=== PATIENT | male | born 1990 | race Caucasian/White ===

== ENCOUNTER → 2018-05-05 12:40 | Outpatient (CLI) | payer OTHER, SELFPAY ==
--- NOTE | 2018-05-05 | DI.MRI.S_ITS ---
PROCEDURE: MR ANKLE RT WO CON INDICATIONS: PAIN IN BOTH FEET AND ANKLES, DIFFICULTY WALKING TECHNIQUE: Noncontrast sagittal T1 spin echo and T2 fast spin echo with fat saturation, axial proton density fast spin echo and T2 fast spin echo with fat saturation, coronal T1 spin echo and T2 fast spin echo with fat saturation through the ankle/hindfoot. COMPARISON: [facility], MR, MR ANKLE LT WO CON, 05/05/2018, 12:56. FINDINGS: Image quality: Diagnostic. Bones and joints: No bone marrow contusions or fractures. No hindfoot coalitions. No osteochondral injuries of the talar dome. No pathologic joint effusions. Medial structures: The deltoid ligament is intact. Thickening and increased signal is evident involving the supramedial band of the spring ligament. The plantar components of the spring ligament are thickened, but appear intact. The tibialis posterior flexor digitorum longus, and flexor hallucis longus tendons appear intact. The posterior tibial neurovascular bundle appears to be within normal limits through the region of the tarsal tunnel. Lateral structures: The there is thickening and heterogeneity identified involving antrum posterior distal tibiofibular ligaments. The anterior and posterior talofibular ligaments are intact. The calcaneofibular ligament is intact. No complete tears are evident. The peroneus brevis and peroneus longus tendons are intact. There is flattening and increased signal identified involving the peroneus brevis tendon. There is also mild increased signal identified involving the peroneus longus tendon. No significant edema is identified within the sinus tarsi. Anterior structures: The tibialis anterior, extensor hallucis longus, and extensor digitorum longus tendons appear intact. The dorsal talonavicular ligament appears intact. Posterior and plantar structures: There is nonspecific prominence of the Achilles tendon with mild edema noted in the prostatic bed. The plantar fascia is within normal limits. IMPRESSION: 1. Possible mild Achilles tendinopathy without significant change. 2. Mild peroneus brevis and peroneus longus tendinopathy. 3. Probable scarring of the syndesmotic ligaments without a full-thickness tear evident. 4. Probable scarring of the spring ligament. No complete tear. Dictated by: Camden Larson M.D. on 05/05/2018 at 13:31 Approved by: Camden Larson M.D. on 05/05/2018 at 15:01
--- NOTE | 2018-05-05 | DI.MRI.S_ITS ---
PROCEDURE: MR ANKLE LT WO CON INDICATIONS: PAIN IN BOTH FEET AND ANKLES, DIFFICULTY WALKING TECHNIQUE: Noncontrast sagittal T1 spin echo and T2 fast spin echo with fat saturation, axial proton density fast spin echo and T2 fast spin echo with fat saturation, coronal T1 spin echo and T2 fast spin echo with fat saturation through the ankle/hindfoot. COMPARISON: [facility], MR, MR FOOT LT WO CON, 05/05/2018, 13:15. FINDINGS: Image quality: Excellent. Bones and joints: No bone marrow contusions or fractures. No hindfoot coalitions. No osteochondral injuries of the talar dome. No pathologic joint effusions. Medial structures: The posterior tibialis, flexor digitorum longus, and flexor hallucis longus tendons are intact. There is mild posterior tibialis tenosynovitis. The posterior tibial neurovascular bundle appears normal within the tarsal tunnel, without extrinsic mass effect. The deep layer (anterior and posterior tibiotalar ligaments) and superficial layer (tibionavicular, tibiospring, and tibiocalcaneal ligaments) of the deltoid ligament appear normal. The spring ligament components (superomedial calcaneonavicular, medioplantar oblique calcaneonavicular, and inferoplantar longitudinal ligaments) are intact. Lateral structures: The anterior talofibular, calcaneofibular, and posterior talofibular ligaments appear intact. More superiorly, the anterior and posterior tibiofibular ligaments appear intact, as is the intermalleolar ligament. The tibiofibular syndesmosis is normal in width at 2 mm or less. The peroneus longus and brevis tendons demonstrate normal location and morphology. Trace peroneus longus tenosynovitis Adjacent bony peroneal tubercle and retrotrochlear prominence are normal in size. The sinus tarsi demonstrates normal fatty signal, without edema, fibrosis, or cyst formation. Visualized sinus tarsi components (cervical ligament, interosseous talocalcaneal ligament, roots of the inferior extensor retinaculum) appear normal. The calcaneonavicular and calcaneocuboid components of the bifurcate ligament appear intact. The dorsal calcaneocuboid ligament appears intact. Anterior structures: The tibialis anterior, extensor hallucis longus, and extensor digitorum longus tendons appear intact. The dorsal talonavicular ligament appears intact. Fiducial skin marker is placed on the dorsal forefoot/midfoot at the first CMC joint line. There is mild first MCP degeneration however no marrow edema. Otherwise, no mass or focal fluid collection in this area Posterior and plantar structures: The Achilles tendon appears grossly intact although there is mild adjacent soft tissue edema approximately 5 cm cephalad to the calcaneal attachment raises the possibility of low-grade Achilles tendinopathy. The plantar fascia appears normal. IMPRESSION: Findings suggest low-grade Achilles tendinopathy. Mild posterior tibialis and minimal peroneus longus tenosynovitis. Elsewhere, no internal derangement seen. Fiducial skin marker placed over the first TMT joint, and there is mild degenerative change although no marrow edema. No underlying mass or focal fluid collection. Dictated by: Brandin Kauffman M.D. on 05/05/2018 at 14:05 Approved by: Brandin Kauffman M.D. on 05/05/2018 at 14:13
--- NOTE | 2018-05-05 | DI.MRI.S_ITS ---
PROCEDURE: MRFOOT LT WO CON INDICATIONS: PAIN IN BOTH FEET AND ANKLES, DIFFICULTY WALKING TECHNIQUE: Noncontrast sagittal T1 spin echo and T2 fast spin echo with fat saturation, long-axis T1 spin echo and T2 fast spin echo with fat saturation, short-axis T1 spin echo and T2 fast spin echo with fat saturation through the forefoot. COMPARISON: None. FINDINGS: Image quality: Excellent. Bones and joints: No bone marrow contusions or metatarsal stress fractures. The sesamoid bones appear in expected positions, without internal edema. No metatarsophalangeal joint degeneration. No intraosseous lesions. Skin fiducial marker seen at the first TMT joint with a mild degenerative change however no marrow edema or evidence of mass lesion. First MTP joint degeneration, mild to moderate. Soft tissues: The visualized plantar foot muscles demonstrate normal signal and bulk. Visualized flexor and extensor tendons appear intact, without tenosynovitis. The distal insertions of the peroneus brevis and longus tendons appear intact. The principal Lisfranc ligament appears intact. Subcentimeter possible focal fluid collection measuring 7 x 4 mm on short axis image 25 series 8, along the medial aspect of the distal first metatarsal could represent small ganglion cyst. There is also mildly prominent fluid adjacent to the fifth metatarsal head although this could be within the joint space. Sagittal images demonstrate no evidence for plantar plate tears. IMPRESSION: Mild degenerative changes and subcentimeter presumed ganglion cyst adjacent to the first metatarsal First MTP joint degeneration. No evidence of stress fracture. Dictated by: Brandin Kauffman M.D. on 05/05/2018 at 14:16 Approved by: Brandin Kauffman M.D. on 05/05/2018 at 14:22
--- NOTE | 2018-05-05 | DI.MRI.S_ITS ---
PROCEDURE: MR FOOT RT WO CON INDICATIONS: PAIN IN BOTH FEET AND ANKLES, DIFFICULTY WALKING TECHNIQUE: Noncontrast sagittal T1 spin echo and T2 fast spin echo with fat saturation, long-axis T1 spin echo and T2 fast spin echo with fat saturation, short-axis T1 spin echo and T2 fast spin echo with fat saturation through the forefoot. COMPARISON: None. FINDINGS: Image quality: Diagnostic. Bones and joints: No acute fracture or dislocation is identified involving the osseous structures of the midfoot or forefoot. There is slight marrow edema identified on the basis of the 3rd and 4th metatarsals. A definitive stress fractures are appreciated. Bony alignment appears to be within normal limits. No significant degenerative changes of the foot are appreciated. No joint effusions are evident. Soft tissues: Nonspecific subcutaneous edema is identified on the dorsal aspect of the lateral forefoot overlying the 4th and 5th metatarsal heads with a small amount of fluid contained within its corresponding bursa. There may also be bursal fluid within the metatarsal bursa between the 3rd and 4th metatarsals and the 1st and 2nd metatarsals. No significant atrophy or edema involving the intrinsic muscles of the forefoot are evident. The tendons of the forefoot are within normal limits. The Lisfranc ligament is intact. No soft tissue masses or drainable fluid collections are evident. IMPRESSION: 1. Stress reaction versus degenerative change involving the bases of the 3rd and 4th metatarsals. No definitive stress fracture. 2. Intermetatarsal bursal fluid between the 1st/2nd, 3rd/4th, and 4th/5th metatarsal heads is suspicious for possible intermetatarsal bursitis, particularly along the lateral margin of the forefoot. Dictated by: Camden Larson M.D. on 05/05/2018 at 15:01 Approved by: Camden Larson M.D. on 05/05/2018 at 15:05
== END ==
PROVIDERS: PCP Family Medicine; Visit Provider Podiatrist
DX: M25.572 Pain in left ankle and joints of left foot (principal); M25.571 Pain in right ankle and joints of right foot; M65.872 Other synovitis and tenosynovitis, left ankle and foot; M19.072 Primary osteoarthritis, left ankle and foot; M67.873 Other specified disorders of tendon, right ankle and foot; R26.2 Difficulty in walking, not elsewhere classified
CPT/HCPCS: 73718; 73721

== ENCOUNTER → 2019-01-05 06:52 | Outpatient (CLI) | payer OTHER, SELFPAY ==
--- NOTE | 2019-01-05 | DI.MRI.S_ITS ---
PROCEDURE: MR FOOT RT WO CON INDICATIONS: Dislocation of tarsometatarsal joint of unspecifie TECHNIQUE: Noncontrast sagittal T1 spin echo and T2 fast spin echo with fat saturation, long-axis T1 spin echo and T2 fast spin echo with fat saturation, short-axis T1 spin echo and T2 fast spin echo with fat saturation through the forefoot. COMPARISON: [facility], MR, MR FOOT RT WO CON, 05/05/2018, 13:52. FINDINGS: Image quality: Diagnostic. Bones and joints: No acute fracture, dislocation, or suspicious osseous lesion is identified involving the osseous structures of the right midfoot and forefoot. The previously noted areas of subtle marrow edema involving the 3rd and 4th metatarsal bases is significantly less conspicuous on the current study and may have resolved in the interim. Bony alignment is within normal limits. No significant degenerative changes of the foot are evident. Soft tissues: Minimal areas of subcutaneous edema noted along the lateral margin of the forefoot. There also may be mild edema along the region of the plantar surface of the toes. No drainable fluid collections are evident. There are no soft tissue masses. The flexor and extensor tendons are within normal limits. The amount of fluid between the 1st/2nd, 3rd/4th, and 4th/5th metatarsal heads is less prominent and less conspicuous on the current study. Lisfranc ligament is intact. IMPRESSION: 1. No acute osseous abnormality of the right midfoot or forefoot. 2. Previously seen marrow edema involving the 3rd and 4th metatarsal bases has resolved 3. The amount of fluid between the metatarsal heads is less pronounced on the current study. Dictated by: Camden Larson M.D. on 01/05/2019 at 11:06 Approved by: Camden Larson M.D. on 01/05/2019 at 11:29
== END ==
PROVIDERS: PCP Family Medicine; Visit Provider Family Medicine
DX: S93.324A Dislocation of tarsometatarsal joint of right foot, initial encounter (principal)
CPT/HCPCS: 73718; A9579

== ENCOUNTER → 2019-05-07 11:07 | Outpatient (CLI) | payer OTHER, SELFPAY ==
--- NOTE | 2019-05-07 | DI.RAD.S_ITS ---
PROCEDURE: FL SHOULDER INJECTION MR/CT RT INDICATIONS: PAIN IN RIGHT SHOULDER TECHNIQUE: The indications, alternatives, benefits, risks, and complications of the procedure were explained to the patient. Written informed consent was obtained and placed in the chart. The shoulder was examined fluoroscopically and a site for needle placement chosen for entry into the glenohumeral joint from an anterior approach. The skin was prepped and draped in a sterile fashion, and 1% lidocaine infiltrated from skin down to joint capsule. A spinal needle was inserted into the glenohumeral joint, and a small amount of iodinated contrast media injected to confirm intra-articular placement of the needle tip. This was followed by approximately 12 mL dilute solution of a gadolinium containing MR contrast agent. The needle was removed and a dressing was applied. The patient was given postprocedural instructions and sent to the MR suite for MR imaging. FINDINGS: A single fluoroscopic spot image demonstrates intra-articular location of injected iodinated contrast. IMPRESSION: Successful fluoroscopically guided administration of dilute Gadolinium solution into the shoulder joint for MR arthrogram. Dictated by: Brandin Kauffman M.D. on 05/07/2019 at 17:17 Approved by: Brandin Kauffman M.D. on 05/07/2019 at 17:17
--- NOTE | 2019-05-07 | DI.MRI.S_ITS ---
PROCEDURE: MR SHOULDER RT W CON INDICATIONS: PAIN IN RIGHT SHOULDER TECHNIQUE: After the administration of 12 mL of dilute intra-articular Gadolinium contrast, oblique coronal T1 and T2 spin echo with fat saturation, oblique sagittal T1 spin echo with and without fat saturation, oblique sagittal T2 fast spin echo with fat saturation, axial T1 spin echo with fat saturation through the shoulder. COMPARISON: None. FINDINGS: Image quality: Excellent. Rotator cuff: There is minimal articular and bursal surface fraying at the junction of the critical zone and footprint of the supraspinatus tendon however no high-grade or full-thickness defect identified. Infraspinatus tendon appears intact. Teres minor appears intact. Subscapularis tendon appears grossly intact. No atrophy of the rotator cuff muscles. Bones and bursae: No bone marrow contusions or fractures. Mild acromioclavicular joint degeneration. Acromion demonstrates conventional anatomy, without an os acromiale. Mild subacromial-subdeltoid bursitis without T1 shortening. Capsule and soft tissues: Labrum: Irregularity of the superior labrum, with suggestion of bucket handle type tear image 11/7. There is also irregularity and chondrolabral separation of the posterosuperior labrum, for example image 14/6. No definite posterior subluxation of the humeral head relative to the glenoid Long head of the biceps tendon intact. The rotator interval appears normal, without fibrosis. Coracohumeral ligament intact. IMPRESSION: Irregularity of the superior labrum suggesting labral tear, possibly bucket handle configuration. Additional posterosuperior labral tear and frayed appearance although this finding technically age unknown Minimal articular and bursal surface fraying of junction of the critical zone and footprint of the supraspinatus tendon. Mild subacromial-subdeltoid bursitis Dictated by: Brandin Kauffman M.D. on 05/07/2019 at 13:59 Approved by: Brandin Kauffman M.D. on 05/07/2019 at 14:08
== END ==
PROVIDERS: PCP Family Medicine; Referring Provider Family Medicine; Visit Provider Family Medicine
DX: M25.511 Pain in right shoulder (principal); M75.51 Bursitis of right shoulder; S43.491A Other sprain of right shoulder joint, initial encounter
CPT/HCPCS: 23350; 73222; 77002

== ENCOUNTER → 2019-05-09 08:20 | Outpatient (CLI) | payer OTHER, SELFPAY ==
--- NOTE | 2019-05-09 | DI.RAD.S_ITS ---
PROCEDURE: FL SHOULDER INJECTION MR/CT LT INDICATIONS: LEFT SHOULDER PAIN TECHNIQUE: The indications, alternatives, benefits, risks, and complications of the procedure were explained to the patient. Written informed consent was obtained and placed in the chart. The shoulder was examined fluoroscopically and a site for needle placement chosen for entry into the glenohumeral joint from an anterior approach. The skin was prepped and draped in a sterile fashion, and 1% lidocaine infiltrated from skin down to joint capsule. A spinal needle was inserted into the glenohumeral joint, and a small amount of iodinated contrast media injected to confirm intra-articular placement of the needle tip. This was followed by approximately 12 mL of iodinated contrast. The needle was removed and a dressing was applied. The patient was given postprocedural instructions and sent to the CT suite for imaging. FINDINGS: A single fluoroscopic spot image demonstrates intra-articular location of injected iodinated contrast. IMPRESSION: Successful fluoroscopically guided administration of iodinated contrast solution into the shoulder joint for CT arthrogram. Dictated by: Valentin Myles M.D. on 05/09/2019 at 9:59 Approved by: Valentin Myles M.D. on 05/09/2019 at 9:59
--- NOTE | 2019-05-09 | DI.MRI.S_ITS ---
PROCEDURE: MR SHOULDER LT W CON INDICATIONS: LEFT SHOULDER PAIN TECHNIQUE: After the administration of 12 mL of dilute intra-articular Gadolinium contrast, oblique coronal T1 and T2 spin echo with fat saturation, oblique sagittal T1 spin echo with and without fat saturation, oblique sagittal T2 fast spin echo with fat saturation, axial T1 spin echo with fat saturation through the shoulder. COMPARISON: [facility], MR, MR SHOULDER RT W CON, 05/07/2019, 12:06. FINDINGS: Image quality: Excellent. Rotator cuff: The supraspinatus, infraspinatus, and teres minor are intact. There is mild longitudinal partial tearing of the subscapularis tendon. No tendon retraction. No rotator cuff muscle atrophy on sagittal images. Bones and bursae: No bone marrow contusions or fractures. There is mild acromioclavicular joint degeneration. The acromion demonstrates slight lateral downsloping, without an os acromiale. There is trace subacromial/subdeltoid bursal fluid. Capsule and soft tissues: There is a mildly detached tear of the superior and posterosuperior labrum. There is also mild irregular tearing of the anteroinferior and inferior labrum with associated lobulated paralabral cyst tracking posteroinferiorly. The glenohumeral ligaments appear intact. The long head of the biceps tendon demonstrates normal location and morphology. The rotator interval appears normal, without fibrosis. The coracohumeral ligament is of normal thickness. No intra-articular bodies. IMPRESSION: 1. Mildly detached tear of the superior and posterosuperior labrum. 2. Mild irregular tearing of the anteroinferior and inferior labrum with an associated para labral cyst tracking posteroinferiorly. 3. Mild acromioclavicular joint degeneration with slight lateral downsloping of the acromion. There is trace subacromial/subdeltoid bursal fluid. 4. Mild longitudinal partial tearing of subscapularis tendon. Dictated by: Obinna Olivares M.D. on 05/09/2019 at 16:27 Approved by: Obinna Olivares M.D. on 05/09/2019 at 16:49
== END ==
PROVIDERS: PCP Family Medicine; Referring Provider Family Medicine; Visit Provider Family Medicine
DX: M25.512 Pain in left shoulder (principal); M19.012 Primary osteoarthritis, left shoulder; M75.112 Incomplete rotator cuff tear or rupture of left shoulder, not specified as traumatic; S43.492A Other sprain of left shoulder joint, initial encounter
CPT/HCPCS: 23350; 73222; 77002